=== PATIENT | male | born 2000 | race African-American/Black ===

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

== ENCOUNTER → 2021-06-19 16:40 | Outpatient (CLI) | payer OTHER, SELFPAY | PROVIDERS: PCP Pediatrics; Visit Provider Family Medicine | DX: Z23 Encounter for immunization (principal) ==